=== PATIENT | female | born 1995 | race Caucasian/White ===

== ENCOUNTER 2022-06-22 15:14 | Observation (INO) ==
[2022-06-22] MEDS ORDERED: SODIUM CHLORIDE 0.9% 1000ML 1,000 ML IV STA (15:37)
--- NOTE | 2022-06-22 15:53 | Emergency Department Note ---
Impression & Plan Anemia DC ED Provider Note HPI: The patient is a 26-year-old female G3, P3 who is currently 6 days after spontaneous vaginal delivery at [facility], presents the emergency department today with generalized weakness. Patient states that she has not felt well since she delivered, states she has been very weak, at times she feels dizzy. Patient states that she has been passing some blood clots per vagina intermittently over the past several days but has not had any consistent or large-volume vaginal bleeding. Patient states that when she was discharged from the hospital on 06/17 following her vaginal delivery on 06/16, her blood count was "low". Patient states that it was 7.0. Patient states she did not receive a blood transfusion. Patient states she discussed her symptoms on the phone today with office staff at her TELECOMMUNICATION EQUIPMENT REPAIRER doctor's office, Dr. Ortega, and she was advised to go to the emergency room to be assessed. Patient states that she went to the emergency room at [facility] earlier today, she had lab work performed and showed a hemoglobin of 9.0, she states she became frustrated because she was still in the waiting room following several hours and therefore left to the emergency room and came to the emergency room here at [facility] for further assessment. On arrival here to the ED the patient was noted to be hypertensive in the 160 systolic, she is otherwise hemodynamically stable and in no acute distress. She is saturating well on room air on arrival. Denies any chest pain or shortness of breath. Patient states she has had a mild headache over the past several days. Denies any abdominal pain. ROS: - Per HPI *Outpatient medications and allergy history reviewed. *Pertinent external medical records reviewed. PE: General: Alert HEENT: Normocephalic, trachea midline Eyes: Extraocular eye movement is intact, no scleral erythema Pulmonary: Clear to auscultation bilaterally, no wheezing Cardio: Regular rate and rhythm GI: Abdomen is soft, nontender, nondistended : No suprapubic tenderness MSK: No evidence of trauma or malformation of the extremities, no edema Skin: No evidence of rash Neuro: Alert, no focal deficits Psychiatric: Cooperative contact center specialist: - An order was placed for continuous cardiac monitoring - Patient was noted to be in sinus rhythm with a rate of 85 EKG: (As interpreted by myself): Rate: 83 Rhythm: Sinus rhythm Intervals: Within normal limits ST changes: No ST elevation Time: 1545 Interventions provided in ED: -IV labetalol Medical Decision Making: Patient presented to the emergency department with a complaint of generalized weakness, states she has had a mild headache, states that her symptoms have been ongoing for the past 5 days or so after she was discharged from [facility] after spontaneous vaginal delivery on 06/16. Patient states she was discharged with anemia, states that she contacted her TELECOMMUNICATION EQUIPMENT REPAIRER provider through [facility] today and was advised to go to the emergency room. IV was established, lab work obtained, patient was placed on set up operator, repeat blood pressure did show downtrend into the 140s without initial intervention, she was given a dose of IV labetalol following the second reading with good improvement in her pressure. She states she did not have any issues with preeclampsia during this . She does not have any severe features on arrival. Magnesium was slightly low at 1.5 therefore this was ordered for repletion via IV. Hemoglobin is 9.1, this is an improvement in regards to the 7.0 the patient reports she was discharged with about a week ago. Patient was g iven IV fluids here in the ED in addition to the labetalol, and IV magnesium repletion, she continued to appear well throughout her stay. Urinalysis was obtained and does not show any evidence of proteinuria. Given the patient's hemoglobin has improved and she is only had what she describes as scant vaginal bleeding, no indication for ultrasound imaging or emergent transfusion at this time. I discussed the patient's presentation with on-call [facility], Dr. Huang. Following her discussion patient will be discharged and transferred to labor and delivery unit for further monitoring of her blood pressure. Patient appears well on my reassessment, she is in agreement to this plan, she was placed for discharge in stable condition and will go directly to labor and delivery for further observation. Critical care time: 35-min. -Stabilization of hypertension with blood pressure greater than 160 systolic and greater than 90 diastolic in the setting requiring IV labetalol for improvement, time spent at the bedside, discussion with other healthcare pro viders (TELECOMMUNICATION EQUIPMENT REPAIRER food production manager) and arrangement of disposition, transfer to L&D for observation Disposition discussion held by myself with: Patient and significant other at the bedside Diagnosis: 1. hypertension 2. anemia 3. Dizziness, nonspecific 4. Generalized weakness 5. Hypomagnesemia, mild Disposition: Discharge and transfer to labor and delivery Pasquale Blanc DO Emergency Medicine Past Med/Surg History Medical History (Updated 06/22/22 @ 17:03 by Pasquale Blanc DO) Anxiety Surgical History (Updated 06/09/22 @ 20:22 by Lesia Segura RN) History of cholecystectomy 2019 [place] teeth extracted 2021 Social History Smoking Status: Current every day smoker Tobacco Type: E-cigarettes / Vaping Hx Alcohol Use: No Hx Substance Use: No Preferred Language: Turkish marital status: Single Feels Safe at Home: Yes Allergies Allergies Allergy/AdvReac Type Severity Reaction Status Date / Time No Known Allergies Allergy Unverified 06/09/22 20:20 Home Meds Home Medications Medication Instructions Recorded Confirmed vits no.124-ferrous fum 1 tab PO DAILY 06/09/22 06/22/22 27 mg iron-folic acid 800 mcg tablet ( Vitamin) ferrous sulfate 325 mg (65 mg 325 mg PO BID 06/22/22 06/22/22 iron) tablet (FeroSul) Results & Data (ED) Vital Signs Vital Signs - 24 hr 06/22/22 15:23 06/22/22 16:00 06/22/22 16:18 Temperature 36.6 C Temperature Source Temporal Artery Scan Pulse Rate 83 86 Pulse Rate [Right Finger] 90 Pulse Rhythm [Right Finger] Regular Respiratory Rate 18 18 18 Respiratory Effort / Characteristics Non-Labored Spontaneous Respiratory Depth Normal Respiratory Pattern Regular Blood Pressure 163/91 H Blood Pressure [Left Arm] 143/99 H Blood Pressure Mean 115 Blood Pressure Mean [Left Arm] 113 Blood Pressure Position Sitting Blood Pressure Position [Left Arm] Lying Pulse Oximetry 99 98 96 Oxygen Delivery Method Room Air Room Air Room Air Sepsis Recent Fever Within 48 Hours No Sepsis New/Unexplained Change in Mental Status N/A Sepsis Action Taken by Nursing No Action Required 06/22/22 16:05 06/22/22 16:50 06/22/22 17:21 Temperature Temperature Source Pulse Rate Pulse Rate [Right Finger] 83 Pulse Rhythm [Right Finger] Regular Respiratory Rate 18 Respiratory Effort / Characteristics Non-Labored Spontaneous Respiratory Depth Normal Respiratory Pattern Regular Blood Pressure Blood Pressure [Left Arm] 135/88 136/95 129/94 Blood Pressure Mean Blood Pressure Mean [Left Arm] 103 108 105 Blood Pressure Position Blood Pressure Position [Left Arm] Lying Lying Lying Pulse Oximetry 98 Oxygen Delivery Method Room Air Sepsis Recent Fever Within 48 Hours Sepsis New/Unexplained Change in Mental Status Sepsis Action Taken by Nursing Laboratory Data 06/22/22 15:50 06/22/22 15:50 Lab Results 06/22/22 06/22/22 06/22/22 Range/Units 15:50 15:50 15:50 WBC 9.50 (4.8-10.8) K/ul RBC 3.14 L (3.93-5.22) M/uL Hgb 9.1 L (12.0-16.0) g/dl Hct 28.1 L (34.1-44.9) % MCV 89.5 (80.0-100.0) fL MCH 29.0 (25.0-34.0) pg MCHC 32.4 (32.0-36.0) g/dL RDW Std Deviation 42.8 (36.4-46.3) fL RDW Coeff of Rg 13.2 (11.5-14.5) % Plt Count 412 H (130-400) K/uL MPV 9.8 (9.4-12.3) fL Immature Gran % (Auto) 2.3 % Neut % (Auto) 55.2 % Lymph % (Auto) 33.5 % [place] % (Auto) 6.6 % Eos % (Auto) 1.9 % Baso % (Auto) 0.5 % Neut # (Auto) 5.24 (1.4-6.5) K/uL Lymph # (Auto) 3.18 (1.2-3.4) K/uL [place] # (Auto) 0.63 (0.24-0.82) K/uL Eos # (Auto) 0.18 (0-0.50) K/uL Baso # (Auto) 0.05 (0-0.2) K/uL Immature Gran # (Auto) 0.22 H (0.00-0.02) K/uL Absolute Nucleated RBC 0.02 H (0-0) K/uL Nucleated RBC % (auto) 0.2 % PT 10.2 (9.0-12.0) Seconds INR 1.0 (0.9-1.1) Sodium 139 (136-145) mmol/L Potassium 3.4 L (3.5-5.1) mmol/L Chloride 106 (98-107) mmol/L Carbon Dioxide 25 (21-32) mmol/L Anion Gap 8 (3-11) BUN 9 (6-23) mg/dl Creatinine 0.81 (0.6-1.2) mg/dl Est Cr Clr Drug Dosing 92.8 ml/min Est GFR ( Amer) 117.0 ml/min Est GFR (Non-Af Amer) 100.9 ml/min BUN/Creatinine Ratio 11.1 (10-20) Glucose 85 (70-99(Fasting)) mg/dl Calcium 8.6 (8.5-10.1) mg/dl Magnesium 1.5 L (1.7-2.4) mg/dl Total Bilirubin 0.2 (0.2-1.0) mg/dl AST 19 (13-39) U/L ALT 20 (7-52) U/L Alkaline Phosphatase 133 H (34-104) U/L Total Protein 6.0 (6.0-8.3) gm/dl Albumin 3.4 (3.4-5.0) gm/dl Globulin 2.6 (2.5-4.0) gm/dl Albumin/Globulin Ratio 1.3 (0.9-2) Lipase 48 (11-82) U/L Urine Color Urine Appearance (Clear) Urine pH (4.5-7.5) Ur Specific [place] (1.000-1.030) Urine Protein (Negative) Urine Glucose (UA) (Negative) Urine Ketones (Negative) Urine Blood (Negative) Urine Nitrite (Negative) Urine Bilirubin (Negative) Urine Urobilinogen (Negative) Ur Leukocyte Esterase (Negative) Blood Type Antibody Screen 06/22/22 06/22/22 Range/Units 15:50 16:58 WBC (4.8-10.8) K/ul RBC (3.93-5.22) M/uL Hgb (12.0-16.0) g/dl Hct (34.1-44.9) % MCV (80.0-100.0) fL MCH (25.0-34.0) pg MCHC (32.0-36.0) g/dL RDW Std Deviation (36.4-46.3) fL RDW Coeff of Rg (11.5-14.5) % Plt Count (130-400) K/uL MPV (9.4-12.3) fL Immature Gran % (Auto) % Neut % (Auto) % Lymph % (Auto) % [place] % (Auto) % Eos % (Auto) % Baso % (Auto) % Neut # (Auto) (1.4-6.5) K/uL Lymph # (Auto) (1.2-3.4) K/uL [place] # (Auto) (0.24-0.82) K/uL Eos # (Auto) (0-0.50) K/uL Baso # (Auto) (0-0.2) K/uL Immature Gran # (Auto) (0.00-0.02) K/uL Absolute Nucleated RBC (0-0) K/uL Nucleated RBC % (auto) % PT (9.0-12.0) Seconds INR (0.9-1.1) Sodium (136-145) mmol/L Potassium (3.5-5.1) mmol/L Chloride (98-107) mmol/L Carbon Dioxide (21-32) mmol/L Anion Gap (3-11) BUN (6-23) mg/dl Creatinine (0.6-1.2) mg/dl Est Cr Clr Drug Dosing ml/min Est GFR ( Amer) ml/min Est GFR (Non-Af Amer) ml/min BUN/Creatinine Ratio (10-20) Glucose (70-99(Fasting)) mg/dl Calcium (8.5-10.1) mg/dl Magnesium (1.7-2.4) mg/dl Total Bilirubin (0.2-1.0) mg/dl AST (13-39) U/L ALT (7-52) U/L Alkaline Phosphatase (34-104) U/L Total Protein (6.0-8.3) gm/dl Albumin (3.4-5.0) gm/dl Globulin (2.5-4.0) gm/dl Albumin/Globulin Ratio (0.9-2) Lipase (11-82) U/L Urine Color Yellow Urine Appearance Clear (Clear) Urine pH 6.5 (4.5-7.5) Ur Specific [place] 1.011 (1.000-1.030) Urine Protein Negative (Negative) Urine Glucose (UA) Negative (Negative) Urine Ketones Negative (Negative) Urine Blood 3+ H (Negative) Urine Nitrite Negative (Negative) Urine Bilirubin Negative (Negative) Urine Urobilinogen Negative (Negative) Ur Leukocyte Esterase 1+ H (Negative) Blood Type A Positive Antibody Screen NEGATIVE Administered Medications Magnesium Sulfate/Dextrose (Magnesium Sulfate / D5w) 1 gm in 100 mls @ 200 mls/hr IV Q30M EVI Stop: 06/22/22 17:31 Last Admin: 06/22/22 17:16 Dose: 200 mls/hr Documented By: Infusion: 06/22/22 17:09 Dose: 200 mls/hr Documented By: Admin: 06/22/22 16:39 Dose: 200 mls/hr Documented By: CRISTINA Discontinued Medications Sodium Chloride (Nss 1000ml) 1,000 mls @ 999 mls/hr IV .Q1H1M STA Stop: 06/22/22 16:37 Last Infusion: 06/22/22 17:11 Dose: 0 mls/hr Documented By: Admin: 06/22/22 16:07 Dose: 999 mls/hr Documented By: CRISTINA Labetalol HCl (Labetalol Hcl Iv 5 Mg/Ml 20ml) 10 mg IV NOW STA Stop: 06/22/22 15:58 Last Admin: 06/22/22 16:06 Dose: 10 mg Documented By: CRISTINA Co-signed By: YONATAN Discharge Plan Visit Data Chief Complaint: Lethargic Stated Complaint: REACTION TO POST MEDICATION ED Provider: Pasquale Blanc Discharge Problem: Anemia Forms Stand Alone Forms: [facility] Prescriptions Prescriptions: No Action ferrous sulfate [FeroSul] 325 mg (65 mg iron) tablet 325 mg PO BID Vitamin 27 mg iron- 800 mcg Tablet 1 tab PO DAILY Referrals Referrals: PCP,NO [Physician] - : Anemia Qualifiers: Anemia type: unspecified type Qualified Code(s): D64.9 - Anemia, unspecified
[2022-06-22] MEDS ORDERED: LABETALOL HCL IV 5 MG/ML 20ML IV STA (15:57)
[2022-06-22 16:09] LABS: Basophils # (auto) 0.05 K/uL (0-0.2); Basophils % (auto) 0.5 %; Eosinophils # (auto) 0.18 K/uL (0-0.50); Eosinophils % (auto) 1.9 %; Hematocrit (blood only) 28.1 % (34.1-44.9); Hemoglobin 9.1 g/dl (12.0-16.0); Immature Granulocytes # (auto) 0.22 K/uL (0.00-0.02); Immature Granulocytes % (auto) 2.3 %; Lymphocytes # (auto) 3.18 K/uL (1.2-3.4); Lymphocytes % (auto) 33.5 %; Mean Corpuscular Hgb Conc 32.4 g/dL (32.0-36.0); Mean Corpuscular Volume 89.5 fL (80.0-100.0); Mean Platelet Volume 9.8 fL (9.4-12.3); Monocytes # (auto) 0.63 K/uL (0.24-0.82); Monocytes % (auto) 6.6 %; Neutrophils # (auto) 5.24 K/uL (1.4-6.5); Neutrophils % (auto) 55.2 %; Nucleated RBC # (auto) 0.02 K/uL (0-0); Nucleated RBC % (auto) 0.2 %; Platelet Count 412 K/uL (130-400); RDW Coefficient of Variation 13.2 % (11.5-14.5); RDW Standard Deviation 42.8 fL (36.4-46.3); Red Blood Count 3.14 M/uL (3.93-5.22)
[2022-06-22 16:24] LABS: Albumin Level 3.4 gm/dl (3.4-5.0); Bilirubin,Total 0.2 mg/dl (0.2-1.0); Calcium 8.6 mg/dl (8.5-10.1); Magnesium 1.5 mg/dl (1.7-2.4); Potassium 3.4 mmol/L (3.5-5.1)
[2022-06-22 16:31] LABS: Albumin Globulin Ratio 1.3 (0.9-2); BUN Creatinine Ratio 11.1 (10-20); Creatinine Clr Calc Pharmacy 92.8 ml/min; Est GFR (Non-African American) 100.9 ml/min; Globulin 2.6 gm/dl (2.5-4.0)
[2022-06-22 16:32] LABS: Prothrombin Time 10.2 Seconds (9.0-12.0)
[2022-06-22] MEDS: MAGNESIUM SULFATE / D5W 1 GM/100 ML BAG IV SCH ×2 (16:39→17:16)
[2022-06-22 17:18] LABS: Appearance Urine Clear (Clear); Bacteria Urine Automated 1+ (Negative); Bilirubin Urine Negative (Negative); Blood Urine 3+ (Negative); Cast Urine Automated 0 /lpf (0-5); Color Urine Yellow; Epithelial Cell Urine Auto >30 /lpf (0-5); Glucose Urine UA Negative (Negative); Ketones Urine Negative (Negative); Leukocyte Esterase Urine 1+ (Negative); Nitrite Urine Negative (Negative); Protein Urine Negative (Negative); Specific Gravity Urine 1.011 (1.000-1.030); Urobilinogen Urine Negative (Negative); pH Urine 6.5 (4.5-7.5)
[2022-06-22 18:44] LABS: Troponin I High Sensitivity 5.1 pg/ml (0-14)
[2022-06-22] MEDS ORDERED: ACETAMINOPHEN 325 MG TAB PO STA (18:48)
--- NOTE | 2022-06-22 19:17 | Consultation ---
Date of Consultation June 22, 2022 Assessment & Plan (1) Elevated blood pressure reading: (2) Encounter for assessment: Plan Plan to admit for observation to r/o pp preeclampsia given elevated blood pressures and a probably hx for induction for what I suspect is at minimum GHTN. Will try to obtain records and ultrasound done today. Labs are all wnl. hgb is 9.1 and she does not show signs of acute anemia, so does not need a blood transfusion. Will monitor blood pressures. If she shows persistent severe levels, would plan mag prophylaxis. She expresses understanding of this. If pressures remain below severe range and labs remain normal, would plan d/c for close f/u with her regular physicians in [place]. She expresses understanding of the plan. Will get her a pump. Can allow her to eat and treat thomas with tylenol. Will monitor for s/s of pet. Questions answered. History of Present Illness Requesting Physician: Dr. Guaman History of Present Illness Patient is a 26yowf who presents to the ED 6 days PP not feeling well. Patient had a vaginal delivery 6 days ago on 06/16 at [facility] and was followed by that group. Patient notes she had a fairly uncomplicated , her third, new fob. Her EDC was 06/23 and she notes she was induced early. On questioning why, it is a bit difficult to determine, but it seems she had some elevated blood pressures and so that was why they wanted to induce her. She notes she did not have any issues with blood pressures in her other two pregnancies or when not . She had a nice vaginal delivery and was sent home in a normal time frame. She notes she had a lot of bleeding after the delivery but did not receive a transfusion. She notes since leaving the hospital, she has just not felt well. Notes she is extremely tired, dizzy at times, shaky and having nausea vomiting. She called her doctor at [facility] who told her "you should have never left the hospital without a transfusion, go to the ED for a transfusion". She did and then eventually ended up leaving because she was dissatisfied with how they were treating her. She apparently had an ultrasound but did not wait for the results. She notes she has not had a lot of bleeding but over the last two days she had two episodes where she passed two big clots. Show them to me on her phone and they look about golf ball size. She notes though that there has not been increased bleeding with them. She then drove here to be evaluated. Her first blood pressure in the ED was 163/91 and a repeat about 30 min later was 143/99. She was then treated with 10mg of IV labetelol, prior to consultation with me. Since then she has been in the 130s/90s. When I see her, she is lying comfortably in bed. She notes she is hungry. She notes she just recently got a headache behind her left eye, new onset, has had some intermittent thomas since delivery. No vision changes, no ruq pain, no significant swelling. She is breast feeding/pumping and notes her breasts are killing her and asking for a pump. She admits to vaping and notes last did this about 2 hours ago. Denies cigarette smoking. Admits to pnv, iron and motrin use. Patient is a with three vaginal deliveries. the other two deliveries were uncomplicated per her report. This is a new FOB. Allergies Allergy/AdvReac Type Severity Reaction Status Date / Time No Known Allergies Allergy Unverified 06/09/22 20:20 Home Medications Medication Instructions Recorded Confirmed Type vits no.124-ferrous fum 1 tab PO DAILY 06/09/22 06/22/22 History 27 mg iron-folic acid 800 mcg tablet ( Vitamin) ferrous sulfate 325 mg (65 mg 325 mg PO BID 06/22/22 06/22/22 History iron) tablet (FeroSul) Patient History Medical History Anxiety Surgical History History of cholecystectomy 2019 [place] teeth extracted 2021 Social History Smoking Status: Current every day smoker Tobacco Type: E-cigarettes / Vaping Hx Alcohol Use: No Hx Substance Use: No Preferred Language: Luxembourgish marital status: Single Feels Safe at Home: Yes Physical Exam Constitutional: WD/WN, vitals as above Results & Data ([facility]) Vital Signs (Past 12 Hours) Vital Signs Temp Pulse Pulse Resp BP BP Pulse Ox 06/22/22 18:00 81 20 133/93 96 06/22/22 17:21 83 18 129/94 98 06/22/22 16:50 136/95 06/22/22 16:05 135/88 06/22/22 16:18 86 18 96 06/22/22 16:00 90 18 143/99 H 98 06/22/22 15:23 36.6 C 83 18 163/91 H 99 O2 Del Method 06/22/22 18:00 Room Air 06/22/22 17:21 Room Air 06/22/22 16:50 06/22/22 16:05 06/22/22 16:18 Room Air 06/22/22 16:00 Room Air 06/22/22 15:23 Room Air PG Care Time/CCT Total # of Minutes Spent Total Time Spent with Patient: Total time spent is greater than 50% in coordination of care (as documented) at patient's floor/unit and/or counseling patient: Coding Level of Care Code INP/OBS CONSULT LVL 2, 35 MIN Diagnoses Elevated blood pressure reading R03.0 Encounter for assessment Z39.2
[2022-06-22] MEDS ORDERED: LACTATED RINGER'S 1,000 ML IV SCH (20:24)
[2022-06-22] MEDS: IBUPROFEN 600 MG TAB PO SCH (21:25)
[2022-06-23] MEDS: IBUPROFEN 600 MG TAB PO SCH (02:30)
[2022-06-23 06:23] LABS: Basophils # (auto) 0.03 K/uL (0-0.2); Basophils % (auto) 0.4 %; Eosinophils # (auto) 0.14 K/uL (0-0.50); Eosinophils % (auto) 1.9 %; Hematocrit (blood only) 23.1 % (34.1-44.9); Hemoglobin 7.6 g/dl (12.0-16.0); Immature Granulocytes # (auto) 0.14 K/uL (0.00-0.02); Immature Granulocytes % (auto) 1.9 %; Lymphocytes % (auto) 45.1 %; Mean Corpuscular Hemoglobin 29.6 pg (25.0-34.0); Mean Corpuscular Hgb Conc 32.9 g/dL (32.0-36.0); Mean Corpuscular Volume 89.9 fL (80.0-100.0); Mean Platelet Volume 9.8 fL (9.4-12.3); Monocytes # (auto) 0.46 K/uL (0.24-0.82); Monocytes % (auto) 6.1 %; Neutrophils # (auto) 3.37 K/uL (1.4-6.5); Neutrophils % (auto) 44.6 %; Nucleated RBC # (auto) 0.02 K/uL (0-0); Nucleated RBC % (auto) 0.3 %; Platelet Count 369 K/uL (130-400); RDW Coefficient of Variation 13.2 % (11.5-14.5); RDW Standard Deviation 43.2 fL (36.4-46.3); Red Blood Count 2.57 M/uL (3.93-5.22); White Blood Count 7.54 K/ul (4.8-10.8)
[2022-06-23 06:56] LABS: Polychromasia 1+
[2022-06-23 07:05] LABS: Albumin Level 2.8 gm/dl (3.4-5.0); Bilirubin,Total 0.2 mg/dl (0.2-1.0); Calcium 7.4 mg/dl (8.5-10.1); Potassium 3.4 mmol/L (3.5-5.1)
[2022-06-23] MEDS ORDERED: IBUPROFEN 600 MG TAB PO PRN (07:10)
[2022-06-23 07:16] LABS: Albumin Globulin Ratio 1.4 (0.9-2); BUN Creatinine Ratio 12.2 (10-20); Creatinine Clr Calc Pharmacy 101.6 ml/min; Est GFR (African American) 130.5 ml/min; Est GFR (Non-African American) 112.6 ml/min; Total Protein 4.8 gm/dl (6.0-8.3)
[2022-06-23] MEDS ORDERED: FERROUS SULFATE 325 MG TAB PO SCH (08:00)
--- NOTE | 2022-06-23 08:22 | Obstetrical Progress Note ---
Date of Service June 23, 2022 Assessment & Plan (1) Encounter for assessment: (2) Elevated blood pressure reading: Plan 1. elevated blood pressures--from hx , she had induction for GHTN. She has not demonstrated significant blood pressures overnight. She denies s/s of pet. Plan to continue hourly blood pressures starting at 8am. She is to start getting up and moving around to make sure stay ok with activity. PET labs this am are wnl. 2. anemia--no evidence of active bleeding. Since patient is feeling so poorly, offered immediate transfusion. r/b/se discussed. After discussion, patient would like to see how she feels through the day. I do not think clinically she needs a transfusion, but at this point will leave it up to her. 3. f/u--I have recommended to the patient that she follow up with her delivering doctor as they know her hx in detail and really can best follow her. I would have her f/u in 3-5 days with her ob. Since I have seen her here in the hospital, she is established with us and can f/u. Would need to then get records. Patient says she never went through with the us at [facility] and I called and confirmed this. 4. anxiety--discussed that folks with a hx of this can have exacerbation PP. She does not feel like it is worse than before. Discussed that would f/u with PCP for this as they would be following her for this. All of this will be signed out to Dr. Dowling who is taking over care. Admission and Anticipated Discharge Date Admission Date: June 22, 2022 Subjective Patient notes she is very tired this am. Poor sleep last night and since delivery. She has been up to the bathroom without difficulty. She does not report significant bleeding. She notes no s/s of pet--no thomas,vision changes, edema, cp, sob, n/v. Wants to know if our breakfast here is better than her dinner last night. After I saw the patient, I went to speak with her nurse. Patient last night insisted that her IV be removed because it hurt. She declined having it replaced. I was aware of this and patient was aware that it might have to be replaced if needed. Apparently, the patient had been trying to breast feed directly from the breast while at home. She pumped a little bit at the hospital. the patient was set up with a pump last night and was successful at pumping. Patient notes that she would like to pump and bottle feed. Nursing notes that every time, she had significant anxiety about the whole process. Nursing notes that the patient yelled at her SO alot last night and they argued. Nursing notes that on further questioning, patient admits to an anxiety history with being on prn meds in the past. Patient also noted to nursing that she wanted to transfer care to us. She had not mentioned this to me. Her labs this am are normal, but her hgb is down from 9.1 to 7.4. The patient continues to deny significant bleeding, she denies passing any clots overnight. Discussed that this might be diluation but both note that she has been really good at drinking at home. She notes that she is "always" dizzy and lightheaded since delivery and this has not changed. Her blood pressures have been really good overnight and she is not tachycardic. Physical Exam Constitutional: WD/WN, vitals as above Cardiovascular: Extremities: no calf tenderness and no edema Gastrointestinal (Abdomen): soft, nt, nd, ff/3below u Neurologic: patellar DTR's 2+ bilat, sensation intact (no clonus) Psychiatric: A+Ox3, euthymic affect Results & Data ([facility]) Vital Signs (Past 12 Hours) Vital Signs Temp Pulse Resp BP O2 Del Method 06/23/22 05:30 75 16 114/61 06/23/22 03:30 37.0 C 97 H 18 128/78 Room Air 06/23/22 01:30 18 130/79 Room Air 06/22/22 23:30 36.4 C L 110 H 16 127/89 Room Air 06/22/22 22:00 135/87 06/22/22 21:15 132/85 06/22/22 21:00 37 C PG Care Time/CCT Total # of Minutes Spent Total Time Spent with Patient: Total time spent is greater than 50% in coordination of care (as documented) at patient's floor/unit and/or counseling patient: Coding Level of Care Code 54732 SUB INP/OBS CARE 2/35MIN Diagnoses Encounter for assessment Z39.2 Elevated blood pressure reading R03.0
[2022-06-23] MEDS ORDERED: PRENATAL VITAMIN 1 TAB PO SCH (09:00)
[2022-06-23] MEDS ORDERED: ONDANSETRON INJ 2 MG/ML 2 ML VIAL IV STA (10:04)
[2022-06-23] MEDS ORDERED: ONDANSETRON 4 MG OD TAB PO STA (10:38)
--- NOTE | 2022-06-23 12:28 | Obstetrical Progress Note ---
Date of Service June 23, 2022 Assessment & Plan Admission and Anticipated Discharge Date Admission Date: June 22, 2022 Subjective Patient is doing better. Still feeling a bit weak, but able to ambulate around the room. BPs 130s/90s. Pulse 67. Had some nausea and dry-heaving earlier, took PO Zofran. Lunch try arrived to room while I was seeing patient, and she started eating while I was there - seemed hungry. Abdominal exam: soft, NTTP, nondistended. Uterus firm. Scant vaginal bleeding on pad. We discussed pros/cons of blood transfusion - would likely help her to feel better faster. Reviewed infection/reaction risk - low chance. Would need to restart IV and remain in hospital during transfusion. Alternative is to go home, monitor symptoms, take iron tablet once daily. She'd prefer to go home, has iron and a stool softener at home, and is happy with this plan. I recommended that she be seen in either our office or her primary OBGYN in 1 week for repeat BP check. Results & Data ([facility]) Vital Signs (Past 12 Hours) Vital Signs Temp Pulse Resp BP BP Pulse Ox O2 Del Method 06/23/22 09:00 126/88 139/83 06/23/22 08:00 36.8 C 67 20 135/82 100 Room Air 06/23/22 05:30 75 16 114/61 06/23/22 03:30 37.0 C 97 H 18 128/78 Room Air 06/23/22 01:30 18 130/79 Room Air PG Care Time/CCT Total # of Minutes Spent Total Time Spent with Patient: Total time spent is greater than 50% in coordination of care (as documented) at patient's floor/unit and/or counseling patient: Coding Level of Care Code None
--- NOTE | 2022-06-23 12:32 | Discharge Summary ---
Date of Service June 23, 2022 Discharge Data Consultations 06/22/22 17:46 ED Decision to Admit Stat Hospital Course (1) Elevated blood pressure reading: Please see documentation in chart for full history. In summary, 1w , admitted via ER after elevated BPs. Preeclampsia workup negative. anemia, likely d/t acute loss from delivery. Improving symptoms, improving BP, hemodynamically stable clinically with observation. Offered blood transfusion, declined and desired discharge. DC home with plans to followup 1 w in office for repeat BP check. Coding Level of Care Code None Diagnoses Elevated blood pressure reading R03.0
--- NOTE | 2022-06-23 14:52 | Electrocardiogram Report ---
Test Reason : Blood Pressure : / mmHG Vent. Rate : 083 BPM Atrial Rate : 083 BPM P-R Int : 096 ms QRS Dur : 076 ms QT Int : 350 ms P-R-T Axes : 024 015 011 degrees QTc Int : 411 ms Poor data quality, interpretation may be adversely affected Sinus rhythm with short OK Moderate voltage criteria for LVH, may be normal variant Borderline ECG No previous ECGs available Confirmed by Theo Lang ([id number]) on 06/23/2022 2:52:37 PM Referred By: REFERRED SELF Confirmed By:Theo Lang
== END 2022-06-23 13:50 | disposition home or self-care (01) ==
LOC: ED 15:14 → 4E1 15:14
DX: F17.290 Nicotine dependence, other tobacco product, uncomplicated; R03.0 Elevated blood-pressure reading, without diagnosis of hypertension; R42 Dizziness and giddiness; D64.9 Anemia, unspecified; E83.42 Hypomagnesemia; I10 Essential (primary) hypertension; R53.1 Weakness